=== PATIENT | female | born 1930 | race Caucasian/White ===

== ENCOUNTER → 2016-11-01 | Outpatient (CLI) | payer OTHER ==
[~2016-11-01] MED LIST: ASPIRIN PO; AUGMENTIN PO; CALCIUM 500 + D1 TAB PO; FLAGYL PO; LISINOPRIL PO; LOPID600 MG PO; MULTI-VITAMIN1 TAB PO; PRESERVISION SO1 CAP PO; ZESTORETIC 10/11 TAB PO
--- NOTE | ~2016-11-01 | CR150 ---
[facility] A Service of [facility] & [facility] RADIOLOGY TEXT RESULTS PATIENT: PEREZ DEAL LOCATION: [facility] : 30 UNIT #: [id number] AGE: [address]: Bob Miller MD SEX: F ORDER DR: [id number] [facility] [address] [place], [place] [address] [id number] O MR#: [id number] Acc #: [id number] NAME: PEREZ DEAL. : 1930 SEX: F STUDY DATE/TIME: 11/01/2016 14:19 UNIT: [facility] ROOM: STUDY DESCRIPTION: CR Hip Min 2 Views Lt Attending Physician: Bob iMller M.D. Referring Physician: Bob Miller M.D. Ordering Physician: Bob Miller M.D. Primary Care Physician: Bob Miller M.D. MEDICAL IMAGING REPORT This report is preliminary unless electronic signature is present EXAM AP pelvis with AP and frog views of the left hip (3 images) 11/01/2016 HISTORY Left hip pain for 2-3 months, getting worse. History of multiple falls. COMPARISON CT abdomen and pelvis 09/16/2008. FINDINGS No acute pelvic fracture, hip fracture or hip dislocation is seen. There is moderate degenerative loss of bilateral hip joint space with marginal acetabular osteophyte formation bilaterally. No sacroiliac joint or pubic symphysis diastasis is seen. Left femoral head marginal osteophytes are also noted. There is advanced facet arthropathy on the left at L5-S1. There is lower lumbar levoscoliosis. IMPRESSION 1. No acute abnormality of the pelvis or left hip. 2. Moderate bilateral hip osteoarthritic change, fairly symmetric. 3. Advanced left L5-S1 facet arthropathy. 4. Lower lumbar levoscoliosis. Dictated by... Aure Balderas M.D. THIS IS AN ELECTRONICALLY VERIFIED REPORT Aure Balderas M.D. at 11/03/2016 7:11 AM [facility]/anam TD: 11/02/2016 10:10 JOB #: [id number] [facility] A Service of [facility] & [facility] RADIOLOGY TEXT RESULTS PATIENT: PEREZ DEAL LOCATION: [facility] #: [id number] : 30 UNIT #: [id number] AGE: [address]: Bob Miller MD SEX: F ORDER DR: MEDICAL IMAGING REPORT Page 1 of 1 COPY
== END | disposition home or self-care (01) ==
LOC: CRAD 13:44
DX: M25.551 Pain in right hip (principal); M46.97 Unspecified inflammatory spondylopathy, lumbosacral region; M41.9 Scoliosis, unspecified
CPT/HCPCS: 73502

== ENCOUNTER → 2016-11-07 | Outpatient (CLI) | payer OTHER | END | disposition home or self-care (01) | LOC: CRAD 10:20 | DX: K22.0 Achalasia of cardia (principal) | CPT/HCPCS: 74230; 92611; G8996-GN; G8997-GN; G8998-GN ==

== ENCOUNTER → 2016-11-28 | Outpatient (CLI) | payer OTHER ==
--- NOTE | ~2016-11-28 | CT4 ---
[facility] A Service of [facility] RADIOLOGY TEXT RESULTS PATIENT: PEREZ DEAL LOCATION: [facility] : 30 UNIT #: [id number] AGE: [address]: Ed Figueroa MD SEX: F ORDER DR: [id number] [facility] [address], [place] [address] [id number] O MR#: [id number] Acc #: [id number] NAME: PEREZ DEAL : 1930 SEX: F STUDY DATE/TIME: 11/28/2016 14:26 UNIT: [facility] ROOM: STUDY DESCRIPTION: CT Abd and Pelv Wo Cont Attending Physician: Ed Figueroa M.D. Referring Physician: Ed Figueroa M.D. Ordering Physician: Ed Figueroa M.D. Primary Care Physician: Bob Miller M.D. MEDICAL IMAGING REPORT This report is preliminary unless electronic signature is present EXAM CT abdomen and pelvis without contrast INDICATIONS Urinary tract infection. Left flank pain for the past year. PROCEDURE Unenhanced CT of the abdomen and pelvis TECHNIQUE This CT exam was performed with one or more of the following radiation dose reduction techniques: automatic exposure control, adjustment of mA and/or kV according to patient size, and iterative reconstruction. COMPARISON STUDIES 09/16/2008 FINDINGS Abdomen without contrast: Minimal scarring or atelectasis in the left lung base. Large hiatal hernia. The liver spleen adrenal glands pancreas and gallbladder have an unremarkable appearance. There are colonic diverticula. The bowel loops are nondilated. Suspected focal inflammation, in the mid descending colon. No evidence for an abscess or perforation. Moderate to moderately large colonic stool burden. Appendix is normal. No radiodense urinary system calculus. There is a calcification on the left in the region of the left renal vessels which is favored to be vascular. There is no hydronephrosis. [facility] A Service of [facility] RADIOLOGY TEXT RESULTS PATIENT: PEREZ DEAL LOCATION: [facility] : 30 UNIT #: [id number] AGE: [address]: Ed Figueroa MD SEX: F ORDER DR: Pelvis without contrast. Bladder is decompressed but no radiodense bladder calculus. No aggressive appearing bone lesion. IMPRESSION 1. Focal acute diverticulitis in the mid descending colon. No evidence for abscess or perforation. 2. No radiodense urinary system calculus or hydronephrosis. 3. Other incidental findings as detailed above. Dictated by... Melvin Rivero M.D. THIS IS AN ELECTRONICALLY VERIFIED REPORT Melvin Rivero M.D. at 11/30/2016 7:11 AM [facility]/[place] TD: 11/29/2016 14:38 JOB #: [id number] MEDICAL IMAGING REPORT Page 1 of 1 COPY
--- NOTE | ~2016-11-28 | CR7 ---
[facility] A Service of [facility] RADIOLOGY TEXT RESULTS PATIENT: PEREZ DEAL LOCATION: [facility] : 30 UNIT #: [id number] AGE: [address]: Ed Figueroa MD SEX: F ORDER DR: [id number] [facility] [address] [place], [place] [address] [id number] O MR#: [id number] Acc #: [id number] NAME: PEREZ DEAL : 1930 SEX: F STUDY DATE/TIME: 11/28/2016 14:03 UNIT: [facility] ROOM: STUDY DESCRIPTION: CR Abdomen Single AP View Attending Physician: Ed Figueroa M.D. Referring Physician: Ed Figueroa M.D. Ordering Physician: Ed Figueroa M.D. Primary Care Physician: Bob Miller M.D. MEDICAL IMAGING REPORT This report is preliminary unless electronic signature is present EXAM Abdominal radiograph. INDICATIONS Recurrent urinary tract infection. Lower abdominal pain for the past 2 months. PROCEDURE Two supine views of the abdomen. COMPARISON CT from 11/28/2016. FINDINGS Significant levocurvature centered in the upper lumbar spine with significant degenerative change. Bilateral hip arthrosis right greater than left. No visible radiodense urinary system calculus. Moderate colonic stool. Nonobstructed pattern. IMPRESSION 1. No definite radiodense urinary system calculus. 2. 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 3. Bilateral hip arthrosis right greater than left. Dictated by... Melvin Rivero M.D. THIS IS AN ELECTRONICALLY VERIFIED REPORT Melvin Rivero M.D. at 11/30/2016 7:11 AM [facility]/bd TD: 11/29/2016 14:20 JOB #: [id number] [facility] A Service [facility] RADIOLOGY TEXT RESULTS PATIENT: PEREZ DEAL LOCATION: [facility] : 30 UNIT #: [id number] AGE: [address]: Ed Figueroa MD SEX: F ORDER DR: MEDICAL IMAGING REPORT Page 1 of 1 COPY
== END | disposition home or self-care (01) ==
LOC: CCAT 13:38
DX: N39.0 Urinary tract infection, site not specified (principal); M43.9 Deforming dorsopathy, unspecified; M47.896 Other spondylosis, lumbar region; M16.0 Bilateral primary osteoarthritis of hip; K57.32 Diverticulitis of large intestine without perforation or abscess without bleeding
CPT/HCPCS: 74000; 74176